=== PATIENT | female | born 1950 | race Caucasian/White ===

== ENCOUNTER 2018-05-28 06:17 | Day surgery (SDC) | payer OTHER ==
[2018-05-28] MEDS ORDERED: NEOSTIGMINE 3 MG/3 ML SYRINGE (06:20)
[2018-05-28] MEDS ORDERED: GLYCOPYRROLATE 0.4 MG INJ (06:20)
[2018-05-28] MEDS ORDERED: MIDAZOLAM 1 MG/ML 2 ML INJ (06:20)
[2018-05-28] MEDS ORDERED: PROPOFOL 20 ML (06:20)
[2018-05-28] MEDS ORDERED: LIDOCAINE 2% (SDV) 5 ML INJ (06:20)
[2018-05-28] MEDS ORDERED: ROCURONIUM 50 MG INJ (06:20)
[2018-05-28] MEDS ORDERED: FENTAnyl 50 MCG/ML VIAL ×2 (06:21→08:55)
[2018-05-28] MEDS ORDERED: ONDANSETRON 4 MG INJ ×2 (06:21→08:55)
[2018-05-28] MEDS ORDERED: DEXAMETHASONE 4 MG/ML 1 ML INJ (06:21)
[2018-05-28] MEDS ORDERED: CLINDAMYCIN 900 MG/50 ML D5W IVPB IVPB (07:00)
[2018-05-28] MEDS ORDERED: SUGAMMADEX SODIUM 200 MG/2 ML VIAL IV (07:00)
[2018-05-28] MEDS ORDERED: NEOMYC/POLYMYX/BACIT 30 GM OINT (07:24)
[2018-05-28] MEDS ORDERED: LIDOCAINE 1% (STERILE-PAK) 30 ML INJ (07:24)
[2018-05-28] MEDS ORDERED: morphine SULFATE/PF (10 MG/10 ML) INJ (07:25)
[2018-05-28 07:38] LABS: INR 0.98; PROTIME 13.1 Sec (11.9-14.9)
[2018-05-28 07:39] LABS: PARTIAL THROMBOPLASTIN TIME 30.5 Sec (23.0-35.0)
[2018-05-28] MEDS: ROPIVACAINE 0.5 % 30 ML VIAL (08:27)
[2018-05-28] MEDS ORDERED: FENTAnyl 50 MCG/ML VIAL IV ×2 (09:00)
[2018-05-28] MEDS ORDERED: KETOROLAC 15 MG INJ IV (09:00)
[2018-05-28] MEDS ORDERED: LABETALOL HCL 20MG INJ IV (09:00)
[2018-05-28] MEDS ORDERED: HYDROmorphONE 1 MG/5 ML IV SYRINGE IV ×2 (09:00)
[2018-05-28] MEDS ORDERED: EPHEDrine SULFATE 50 MG/5 ML SYG IV (09:00)
[2018-05-28] MEDS ORDERED: hydrALAzine 20 MG INJ IV (09:00)
[2018-05-28] MEDS: FENTAnyl 50 MCG/ML VIAL IV ×4 (09:00→09:28)
[2018-05-28] MEDS ORDERED: MEPERIDINE 25 MG INJ (09:01)
[2018-05-28] MEDS: MEPERIDINE 25 MG INJ IV (09:10)
[2018-05-28] MEDS: ONDANSETRON 4 MG INJ IV (09:12)
[2018-05-28] MEDS: HYDROmorphONE 1 MG/5 ML IV SYRINGE IV (09:37)
[2018-05-28] MEDS ORDERED: morphine 2 MG INJ IV (10:00)
== END 2018-05-28 11:43 | disposition home or self-care (01) ==
LOC: SDS 06:17
DX: M23.203 Derangement of unspecified medial meniscus due to old tear or injury, right knee (principal); M22.41 Chondromalacia patellae, right knee; E11.9 Type 2 diabetes mellitus without complications; I10 Essential (primary) hypertension; E78.5 Hyperlipidemia, unspecified
CPT/HCPCS: 29881; 82306; 82962; 85610; 85730